=== PATIENT | female | born 1990 | race Two or more races ===

== ENCOUNTER 2020-12-18 20:31 | Emergency (ER) | payer OTHER ==
[~2020-12-18] VITALS: Ht 157.5 cm; Wt 63.5 kg
[2020-12-18] MEDS ORDERED: LORAZEPAM INJ 2 MG/ML VIAL ONE ×2 (21:06→21:23)
[2020-12-18] MEDS ORDERED: LORAZEPAM INJ 2 MG/ML VIAL IM ONE ×2 (21:30)
[2020-12-18] MEDS ORDERED: IV NS 0.9% 1,000 ML BAG IV ONE (21:30)
--- NOTE | 2020-12-18 21:30 | NUR ---
[facility] AND [employer] TO ER BED 12. INTOXICATED, AGITATED AND VERBALLY ABUSSIVE. NOT IN RESP DISTRESS. BROUGHT IN FOR ALCOHOL INTOXICATION. PT ADMITS TO DRINKING ALCOHOL. PT IS BROUGHT IN FOR MEDICAL CLEARANCE FOR BOOKING. PT IS ON CUFFS IN BED W/ [employer] AT BEDSIDE. PROVIDER WAS AT THE BEDSIDE FOR EVAL. ORDERS RECEIVED, NOTED AND CARRIED OUT.
--- NOTE | 2020-12-18 23:25 | NUR ---
IV removed. Catheter intact and site benign. Pressure and 4x4 applied to site. No bleeding noted.
--- NOTE | 2020-12-18 23:25 | NUR ---
Patient discharged to home in stable condition. Written and verbal after care instructions given. Patient verbalizes understanding of instruction.
--- NOTE | 2020-12-18 23:25 | NUR ---
PATIENT NOW IN [facility]USTODY OF [facility].
[2020-12-18 23:47] VITALS: BP 129/37
== END 2020-12-18 23:23 ==
LOC: ER 20:39 → EDBD 20:39 → ER 23:23
DX: S09.8XXA Other specified injuries of head, initial encounter (principal); F10.129 Alcohol abuse with intoxication, unspecified; J45.909 Unspecified asthma, uncomplicated; Z88.6 Allergy status to analgesic agent; V49.49XA Driver injured in collision with other motor vehicles in traffic accident, initial encounter; Y93.89 Activity, other specified; Y92.413 State road as the place of occurrence of the external cause; Y99.8 Other external cause status; Y90.9 Presence of alcohol in blood, level not specified
CPT/HCPCS: 36415; 70450; 72125; 84702; 96360; 96372 ×2; 99285; J2060 ×2; J7030